=== PATIENT | male | born 1975 | race Caucasian/White ===

== ENCOUNTER 2019-04-10 11:36 | Emergency (ER) | payer OTHER ==
[~2019-04-10] VITALS: Ht 165.1 cm; Wt 96.0 kg
[2019-04-10] MEDS ORDERED: ADACEL/BOOSTRIX VACCINE (DIPHTH/PERTUSS/ACELL/TETANUS)0.5ML SYR (90715) IM ONE (12:00)
[2019-04-10] MEDS ORDERED: RABIES VACCINE HUMAN 2.5 INTERNATIONAL UNITS/ML VIAL (90675) IM ONE (12:45)
[2019-04-10] MEDS ORDERED: RABIES IMMUNE GLOBULIN 1500 INTERNATIONAL UNIT/5ML VIAL (90375) IM ONE ×2 (12:45)
[2019-04-10] MEDS ORDERED: RABIES IMMUNE GLOBULIN 300 INTERNATIONAL UNITS/1ML VIAL (90375) IM ONE (13:00)
[2019-04-10 13:31] VITALS: BP 128/72
== END 2019-04-10 13:33 | disposition home or self-care (01) ==
LOC: M ED 11:36
DX: S41.131A Puncture wound without foreign body of right upper arm, initial encounter (principal); W55.81XA Bitten by other mammals, initial encounter; Y92.018 Other place in single-family (private) house as the place of occurrence of the external cause; Z88.0 Allergy status to penicillin; Z88.1 Allergy status to other antibiotic agents; Z88.8 Allergy status to other drugs, medicaments and biological substances; J30.2 Other seasonal allergic rhinitis

== ENCOUNTER 2019-04-13 08:28 | Emergency (ER) | payer OTHER ==
[~2019-04-13] VITALS: Ht 175.3 cm; Wt 90.9 kg
[2019-04-13 08:28] VITALS: BP 146/97
[2019-04-13] MEDS ORDERED: RABIES VACCINE HUMAN 2.5 INTERNATIONAL UNITS/ML VIAL (90675) IM ONE (09:00)
== END 2019-04-13 09:34 | disposition home or self-care (01) ==
LOC: M ED 08:28
DX: Z20.3 Contact with and (suspected) exposure to rabies (principal); Z23 Encounter for immunization; S40.871D Other superficial bite of right upper arm, subsequent encounter; W55.81XD Bitten by other mammals, subsequent encounter; Y92.89 Other specified places as the place of occurrence of the external cause; R03.0 Elevated blood-pressure reading, without diagnosis of hypertension; J30.2 Other seasonal allergic rhinitis; Z88.0 Allergy status to penicillin; Z88.1 Allergy status to other antibiotic agents; Z88.8 Allergy status to other drugs, medicaments and biological substances

== ENCOUNTER 2019-04-17 07:51 | Emergency (ER) | payer OTHER ==
[~2019-04-17] VITALS: Ht 175.3 cm; Wt 90.9 kg
[2019-04-17] MEDS ORDERED: RABIES VACCINE HUMAN 2.5 INTERNATIONAL UNITS/ML VIAL (90675) IM ONE (08:45)
[2019-04-17 09:34] LABS: BASO % 0.7 % (0.0-1.0); EOS # 0.3 10^3/uL (0.0-0.50); EOS % 5.8 % (0.0-3.0); HEMATOCRIT 41.6 % (42.0-52.0); HEMOGLOBIN 13.8 g/dl (13.5-17.5); LYMPH # 1.7 10^3/uL (1.5-4.5); MEAN CORPUSCULAR HEMOGLOBIN 29.5 pg (27.0-33.0); MEAN CORPUSCULAR HGB CONC 33.2 g/dl (32.0-36.5); MEAN CORPUSCULAR VOLUME 88.9 fl (80.0-96.0); MONO # 0.4 10^3/uL (0.0-0.8); MONO % 6.8 % (0.0-5.0); NEUTROPHILS # 3.2 10^3/uL (1.8-7.7); PLATELET COUNT, AUTOMATED 236 10^3/uL (150-450); RED BLOOD COUNT 4.68 10^6/uL (4.30-6.10); WHITE BLOOD COUNT 5.7 10^3/uL (4.0-10.0)
[2019-04-17 09:51] VITALS: BP 162/96
== END 2019-04-17 10:18 | disposition home or self-care (01) ==
LOC: M ED 07:51
DX: Z20.3 Contact with and (suspected) exposure to rabies (principal); Z23 Encounter for immunization; R03.0 Elevated blood-pressure reading, without diagnosis of hypertension; E86.0 Dehydration; Z88.0 Allergy status to penicillin; Z88.1 Allergy status to other antibiotic agents; J30.2 Other seasonal allergic rhinitis

== ENCOUNTER 2019-04-24 08:26 | Emergency (ER) | payer OTHER ==
[~2019-04-24] VITALS: Ht 175.3 cm; Wt 90.5 kg
[2019-04-24 08:27] VITALS: BP 185/84
[2019-04-24] MEDS ORDERED: RABIES VACCINE HUMAN 2.5 INTERNATIONAL UNITS/ML VIAL (90675) IM ONE (08:45)
== END 2019-04-24 09:19 | disposition home or self-care (01) ==
LOC: M ED 08:26
DX: Z23 Encounter for immunization (principal); Z20.3 Contact with and (suspected) exposure to rabies; J30.2 Other seasonal allergic rhinitis; Z88.0 Allergy status to penicillin; Z88.8 Allergy status to other drugs, medicaments and biological substances

== ENCOUNTER → 2023-01-29 | Outpatient (CLI) | payer OTHER | LOC: M WHC 09:15 | PROVIDERS: ATTEND Student in an Organized Health Care Education/Training Program | DX: N49.2 Inflammatory disorders of scrotum (principal) ==

== ENCOUNTER 2024-01-01 12:08 | Day surgery (SDC) | payer OTHER ==
[~2024-01-01] VITALS: Ht 175.3 cm; Wt 99.8 kg
[~2024-01-01 12:08] MED LIST: ERGO500029 PO
[2024-01-01] MEDS: LR 1,000 ML IV SCH (13:29)
[2024-01-01] MEDS: ceFAZolin SOD 2 GM in IV 1 EA IV ONE (13:42)
[2024-01-01] MEDS ORDERED: LIDOCAINE 2% 100MG/5ML SDV (FOR ANES.) As Ordered ONE (13:48)
[2024-01-01] MEDS ORDERED: fentaNYL 250 MCG/5 ML INJECTION As Ordered ONE (13:48)
[2024-01-01] MEDS ORDERED: MIDAZOLAM INJ 2MG/2ML VIAL As Ordered ONE (13:48)
[2024-01-01] MEDS ORDERED: SUGAMMADEX SODIUM 500 MG/5 ML VIAL (BRIDION) As Ordered ONE (13:48)
[2024-01-01] MEDS ORDERED: ROCURONIUM BROMIDE 50MG/5ML VIAL As Ordered ONE (13:48)
[2024-01-01] MEDS ORDERED: METOCLOPRAMIDE INJ 10MG/2ML VIAL As Ordered ONE (13:48)
[2024-01-01] MEDS ORDERED: ONDANSETRON 4MG 2ML VIAL As Ordered ONE (13:48)
[2024-01-01] MEDS ORDERED: propofoL 200 MG/20 ML VIAL As Ordered ONE (13:48)
[2024-01-01] MEDS ORDERED: dexmedeTOMIDine (4MCG/ML)200MCG/50ML BTL (PRECEDEX) As Ordered ONE (13:55)
[2024-01-01] MEDS ORDERED: DESFLURANE 240 ML INHALANT As Ordered ONE (14:22)
[2024-01-01] MEDS ORDERED: fentaNYL 100 MCG/2 ML INJECTION IV PRN (15:55)
[2024-01-01] MEDS ORDERED: LR 1,000 ML IV SCH (15:55)
[2024-01-01] MEDS ORDERED: NS 1,000 ML IV SCH ×2 (16:15→17:30)
[2024-01-01] MEDS ORDERED: PERCOCET 5MG/325MG TAB PO PRN ×4 (16:20→17:30)
[2024-01-01] MEDS: ONDANSETRON 4MG 2ML VIAL IV PRN (16:31)
[2024-01-01] MEDS: HYDROMORPHONE HCL 0.5 MG/ 0.5 ML SYRINGE IV PRN (16:32)
[2024-01-01] MEDS: oxyCODONE 5MG TAB PO PRN (16:33)
[2024-01-01 17:57] VITALS: BP 146/82; TEMP 97.4; O2SAT 98
== END 2024-01-01 19:20 | disposition home or self-care (01) ==
LOC: M SDC 12:08
PROVIDERS: ATTEND Surgery
DX: J30.1 Allergic rhinitis due to pollen (principal); Z88.1 Allergy status to other antibiotic agents; Z88.0 Allergy status to penicillin; Z88.8 Allergy status to other drugs, medicaments and biological substances; Z87.891 Personal history of nicotine dependence
CPT/HCPCS: 49650; C1781; J0665; J0690; J1100; J1170; J2250; J2405; J2765; J3010; S2900

== ENCOUNTER → 2024-04-30 | Outpatient (CLI) | payer OTHER | LOC: M SOG 07:58 | PROVIDERS: ATTEND Physician Assistant | DX: M25.511 Pain in right shoulder (principal) ==

== ENCOUNTER 2024-05-06 08:39 | Outpatient (RCR) | payer OTHER | END 2024-05-10 | LOC: M PT 08:39 | PROVIDERS: ATTEND Physician Assistant | DX: M25.511 Pain in right shoulder (principal) ==

== ENCOUNTER → 2024-05-27 | Outpatient (CLI) | payer OTHER ==
[2024-05-27 09:16] LABS: HEMATOCRIT 40.9 % (42.0-52.0); HEMOGLOBIN 13.2 g/dl (13.5-17.5); MEAN CORPUSCULAR HEMOGLOBIN 27.7 pg (27.0-33.0); MEAN CORPUSCULAR HGB CONC 32.3 g/dl (32.0-36.5); MEAN CORPUSCULAR VOLUME 85.9 fl (80.0-96.0); PLATELET COUNT, AUTOMATED 226 10^3/uL (150-450); RED BLOOD COUNT 4.76 10^6/uL (4.30-6.10); WHITE BLOOD COUNT 6.1 10^3/uL (4.0-10.0)
[2024-05-27 09:44] LABS: CREATININE, URINE 170.2 MG/DL; MAU/CREAT RATIO 4.7 MCG/MG (0.0-30.0)
[2024-05-27 09:48] LABS: ALBUMIN 3.9 G/DL (3.2-5.2); ALKALINE PHOSPHATASE 125 U/L (46-116); ALT/SGPT 26 U/L (7.0-40); AST/SGOT 12 U/L (<34); BILIRUBIN,TOTAL 0.3 MG/DL (0.3-1.2); BLOOD UREA NITROGEN 14 MG/DL (9-23); CALCIUM LEVEL 9.2 MG/DL (8.5-10.1); CARBON DIOXIDE LEVEL 26 MMOL/L (20-31); CHLORIDE LEVEL 109 MMOL/L (98-107); CHOLESTEROL LEVEL 166 MG/DL (<200); CHOLESTEROL RISK RATIO 4.98 (<5); CREATININE FOR GFR 0.75 MG/DL (0.70-1.30); GLOMERULAR FILTRATION RATE > 60.0 (>56); GLUCOSE, FASTING 114 MG/DL (60-100); HDL CHOLESTEROL 33.3 MG/DL (>40); LDL CHOLESTEROL 91.3 MG/DL (<100); NON-HDL-C 132.7 MG/DL; SODIUM LEVEL 141 MMOL/L (136-145); TOTAL PROTEIN 7.2 G/DL (5.7-8.2); TRIGLYCERIDES LEVEL 207 MG/DL (<150)
[2024-05-27 09:49] LABS: THYROID STIMULATING HORMONE 2.482 uIU/ML (0.55-4.78); VITAMIN B12 LEVEL 284 PG/ML (211-911)
[2024-05-27 09:50] LABS: TOTAL 25(OH) VITAMIN D 17.1 NG/ML (20.0-100.0)
[2024-05-27 11:00] LABS: HEMOGLOBIN A1c 6.3 % (4.0-6.0)
== END ==
LOC: M LAB 08:00
PROVIDERS: ATTEND Internal Medicine Hematology
DX: Z13.1 Encounter for screening for diabetes mellitus (principal)

== ENCOUNTER 2024-06-05 06:56 | Outpatient (RCR) | payer OTHER | END 2024-06-09 | LOC: M PT 06:56 | PROVIDERS: ATTEND Physician Assistant | DX: M25.511 Pain in right shoulder (principal) ==

== ENCOUNTER → 2024-07-10 | Outpatient (RCR) | payer OTHER | LOC: M PT 06-10 07:01 | PROVIDERS: ATTEND Physician Assistant | DX: M25.511 Pain in right shoulder (principal) ==

== ENCOUNTER → 2024-07-24 | Outpatient (CLI) | payer OTHER ==
[2024-07-24 09:55] LABS: BASO % 0.6 % (0.0-1.0); EOS # 0.2 10^3/uL (0.0-0.5); EOS % 2.5 % (0.0-3.0); HEMATOCRIT 40.8 % (42.0-52.0); HEMOGLOBIN 13.5 g/dl (13.5-17.5); LYMPH # 1.7 10^3/uL (1.5-5.0); LYMPH % 26.7 % (24.0-44.0); MEAN CORPUSCULAR HEMOGLOBIN 28.7 pg (27.0-33.0); MEAN CORPUSCULAR HGB CONC 33.1 g/dl (32.0-36.5); MEAN CORPUSCULAR VOLUME 86.8 fl (80.0-96.0); MONO # 0.4 10^3/uL (0.0-0.8); MONO % 6.6 % (2.0-8.0); NEUTROPHILS % 63.3 % (36.0-66.0); PLATELET COUNT, AUTOMATED 263 10^3/uL (150-450); WHITE BLOOD COUNT 6.3 10^3/uL (4.0-10.0)
[2024-07-24 10:20] LABS: FERRITIN 215.5 NG/ML (10.5-307.3); RHEUMATOID FACTOR QUANT 5.1 IU/ML (<14)
[2024-07-25 15:07] LABS: ANA PATTERN Mitotic, Centrosome (NEGATIVE); ANA SCREEN, IFA POSITIVE (NEGATIVE)
== END ==
LOC: M LAB 08:36
PROVIDERS: ATTEND Internal Medicine Hematology
DX: M19.90 Unspecified osteoarthritis, unspecified site (principal)

== ENCOUNTER 2024-07-30 08:30 | Outpatient (RCR) | payer OTHER | END 2024-08-09 | LOC: M PT 08:30 | PROVIDERS: ATTEND Physician Assistant | DX: M25.511 Pain in right shoulder (principal) ==

== ENCOUNTER → 2025-01-13 | Outpatient (REF) | LOC: M PLAIMG 13:16 | PROVIDERS: ATTEND Internal Medicine | DX: R52 Pain, unspecified (principal) ==

== ENCOUNTER → 2025-03-14 | Outpatient (CLI) | payer OTHER | LOC: M RAD 10:53 | PROVIDERS: ATTEND Physician Assistant | DX: M75.111 Incomplete rotator cuff tear or rupture of right shoulder, not specified as traumatic (principal) ==

== ENCOUNTER → 2025-06-04 | Outpatient (CLI) | payer OTHER | LOC: M EKG 17:34 | PROVIDERS: ATTEND Anesthesiology | DX: Z01.818 Encounter for other preprocedural examination (principal) ==

== ENCOUNTER 2025-06-16 10:11 | Day surgery (SDC) | payer OTHER ==
[~2025-06-16] VITALS: Ht 175.3 cm; Wt 103.0 kg
[2025-06-16] MEDS ORDERED: dexAMETHasone 4 MG/ML 1 ML VIAL As Ordered ONE (11:13)
[2025-06-16] MEDS ORDERED: ONDANSETRON 4MG 2ML VIAL As Ordered ONE (11:13)
[2025-06-16] MEDS ORDERED: ROCURONIUM BROMIDE 50MG/5ML VIAL As Ordered ONE (11:13)
[2025-06-16] MEDS ORDERED: LIDOCAINE 2% 100 MG/5 ML SDV (FOR ANES.) As Ordered ONE (11:13)
[2025-06-16] MEDS ORDERED: MIDAZOLAM INJ 2 MG/2 ML VIAL As Ordered ONE (11:13)
[2025-06-16] MEDS ORDERED: ACETAMINOPHEN 1000MG/100ML IV BAG As Ordered ONE (11:17)
[2025-06-16] MEDS: ceFAZolin SOD 2 GM IV ONCE IV ONE (12:18)
[2025-06-16] MEDS ORDERED: dexmedeTOMIDine (4 MCG/ML) 200 MCG/50 ML BTL As Ordered ONE (12:19)
[2025-06-16] MEDS ORDERED: SUGAMMADEX SODIUM 500 MG/5 ML VIAL As Ordered ONE (13:45)
[2025-06-16] MEDS ORDERED: KETOROLAC 30 MG/ML 1 ML VIAL As Ordered ONE (13:45)
[2025-06-16] MEDS: ONDANSETRON 4MG 2ML VIAL IV PRN (14:32)
[2025-06-16] MEDS: MORPHINE 4 MG/ML 1 ML VIAL IV PRN (14:32)
[2025-06-16 16:06] VITALS: BP 155/87; TEMP 97.4; O2SAT 97
== END 2025-06-16 16:45 | disposition home or self-care (01) ==
LOC: M SDC 10:11
PROVIDERS: ATTEND Surgery
DX: K40.91 Unilateral inguinal hernia, without obstruction or gangrene, recurrent (principal); E66.3 Overweight; Z88.0 Allergy status to penicillin; Z88.1 Allergy status to other antibiotic agents; Z88.8 Allergy status to other drugs, medicaments and biological substances; Z90.89 Acquired absence of other organs; Z68.33 Body mass index [BMI] 33.0-33.9, adult
CPT/HCPCS: 49651; C1781; J0131; J0665; J0688; J1100; J1885; J2250; J2405; J3010; S2900

== ENCOUNTER → 2025-07-02 | Outpatient (CLI) | payer OTHER ==
[2025-07-02 13:47] LABS: ALT/SGPT 32 U/L (7.0-40); AST/SGOT 15 U/L (<34); CALCIUM LEVEL 9.1 MG/DL (8.5-10.1); CARBON DIOXIDE LEVEL 27 MMOL/L (20-31); CHLORIDE LEVEL 103 MMOL/L (98-107); CHOLESTEROL LEVEL 205 MG/DL (<200); CHOLESTEROL RISK RATIO 5.94 (<5); CREATININE FOR GFR 0.67 MG/DL (0.70-1.30); GLOMERULAR FILTRATION RATE > 90.0 (>56); LDL CHOLESTEROL 120.3 MG/DL (<100); NON-HDL-C 170.5 MG/DL; POTASSIUM SERUM 4.2 MMOL/L (3.5-5.1); SODIUM LEVEL 141 MMOL/L (136-145); TRIGLYCERIDES LEVEL 251 MG/DL (<150)
[2025-07-02 13:49] LABS: TOTAL 25(OH) VITAMIN D 19.0 NG/ML (20.0-100.0)
[2025-07-02 13:51] LABS: ESTIMATED AVERAGE GLUCOSE 146.0 MG/DL (60-110)
== END ==
LOC: M LAB 11:51
PROVIDERS: ATTEND Family Medicine
DX: E55.9 Vitamin D deficiency, unspecified (principal); I10 Essential (primary) hypertension; R73.03 Prediabetes